=== PATIENT | male | born 1990 | race American Indian/Alaskan Native ===

== ENCOUNTER 2022-05-26 04:59 | Emergency (ER) | payer OTHER, BC ==
--- NOTE | 2022-05-26 06:21 | XRay Report ---
CHEST 2 VIEWS INDICATION: chest pain. COMPARISON: None. FINDINGS: Support devices: None. Heart: Within normal limits. Lungs/Pleura: No acute air space or interstitial disease. No significant pleural effusion. IMPRESSION: No acute findings. Signer Name: Fernandez Ohara MD Signed: 05/26/2022 6:17 AM Workstation Name: [id number]
[2022-05-26 07:25] LABS: Hemoglobin 15.2 gm/dl (11.8-15.2); Red Blood Count 5.23 M/mm3 (3.65-5.03)
[2022-05-26 07:26] LABS: Hematocrit 45.2 % (35.5-45.6); Lymphocytes % (Auto) 13.8 % (13.4-35.0); Mean Corpuscular HGB Conc 34 % (32-34); Mean Corpuscular Volume 86 fl (84-94); Mean Platelet Volume 8.7 fl (6-12); Platelet Count 218 K/mm3 (140-440); Red Cell Distribution Width 13.7 % (13.2-15.2)
[2022-05-26 07:27] LABS: Basophils % (Auto) 0.4 % (0.0-1.8); Eosinophils # (Auto) 0.2 K/mm3 (0.0-0.4); Eosinophils % (Auto) 2.1 % (0.0-4.3); Lymphocytes # (Auto) 1.3 K/mm3 (1.2-5.4); Monocytes # (Auto) 0.6 K/mm3 (0.0-0.8); Monocytes % (Auto) 6.1 % (0.0-7.3)
[2022-05-26 07:32] LABS: Alanine Aminotransferase 19 units/L (7-56); Albumin 4.7 g/dL (3.9-5); BUN/Creatinine Ratio 8; Blood Urea Nitrogen 11 mg/dL (9-20); Calcium 9.3 mg/dL (8.4-10.2); Hemolysis Index 7
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
[2022-05-26] MEDS ORDERED: IBUPROFEN 800 MG TAB PO ONE (07:40)
[2022-05-26 08:34] VITALS: BP 132/81
--- NOTE | 2022-05-26 19:56 | Electrocardiograph Report ---
[facility] Test Date: 2022-05-26 Test Time: 05:27:45 Pat Name: RONY RYAN Department: Room: Gender: M [facility] Manager: JUAN : 1990 Requested By: CHIVO RODRIGUEZ Order Number: [id number] Reading MD: Neela Lewis Measurements Intervals [place] Rate: 75 P: 57 MT: 147 QRS: 45 QRSD: 93 T: 32 QT: 368 QTc: 412 Interpretive Statements Sinus arrhythmia Otherwise normal ECG No previous ECG available for comparison Electronically Signed On 05-26-2022 19:55:28 EDT by Neela Lewis
== END 2022-05-26 08:33 | disposition home or self-care (01) ==
LOC: ED 04:59
DX: S96.912A Strain of unspecified muscle and tendon at ankle and foot level, left foot, initial encounter (principal); F32.9 Major depressive disorder, single episode, unspecified; J45.909 Unspecified asthma, uncomplicated; V43.52XA Car driver injured in collision with other type car in traffic accident, initial encounter; W22.10XA Striking against or struck by unspecified automobile airbag, initial encounter; Y93.89 Activity, other specified; Y92.89 Other specified places as the place of occurrence of the external cause; Y99.8 Other external cause status
CPT/HCPCS: 36415; 71046; 80053; 84484; 85025; 93005; 99284